=== PATIENT | male | born 1975 | race American Indian/Alaskan Native ===

== ENCOUNTER 2019-12-08 09:50 | Emergency (ER) | payer SELFPAY ==
[2019-12-08 10:00] VITALS: BP 121/68
--- NOTE | 2019-12-08 10:46 | XRay Report ---
RIGHT INDEX FINGER 3 VIEWS INDICATION / CLINICAL INFORMATION: Right index finger injury with pain and swelling. COMPARISON: None available. FINDINGS: BONES and JOINT(S): No acute fracture or subluxation. No significant arthritis. SOFT TISSUES: Mild generalized edema is seen along the index finger without other significant abnorma lities. ADDITIONAL FINDINGS: None. IMPRESSION: Mild right index finger edema. Signer Name: Torsten Cadet MD Signed: 12/08/2019 10:42 AM Workstation Name: [id number]
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
== END 2019-12-08 11:53 | disposition home or self-care (01) ==
LOC: ED 09:50
DX: S63.630A Sprain of interphalangeal joint of right index finger, initial encounter (principal); F17.200 Nicotine dependence, unspecified, uncomplicated; Z88.0 Allergy status to penicillin; X58.XXXA Exposure to other specified factors, initial encounter; Y93.89 Activity, other specified; Y92.89 Other specified places as the place of occurrence of the external cause; Y99.8 Other external cause status
CPT/HCPCS: 99283

== ENCOUNTER 2019-12-16 10:34 | Emergency (ER) | payer SELFPAY ==
[2019-12-16 10:56] VITALS: BP 142/87
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
--- NOTE | 2019-12-16 12:38 | XRay Report ---
RIGHT FINGER, 3 VIEWS INDICATION / CLINICAL INFORMATION: right index finger swelling/pain after object fell. COMPARISON: None available. FINDINGS: 3 views of the right index finger do not reveal any significant osseous abnormality. No fracture or m alalignment. There is some mild soft tissue swelling proximally. IMPRESSION: Mild soft tissue swelling but no visible fracture or dislocation. Signer Name: Lynne Deal MD Signed: 12/16/2019 12:34 PM Workstation Name: [id number]
== END 2019-12-16 12:58 | disposition home or self-care (01) ==
LOC: ED 10:34
DX: S60.021A Contusion of right index finger without damage to nail, initial encounter (principal); F17.200 Nicotine dependence, unspecified, uncomplicated; Z79.899 Other long term (current) drug therapy; X50.9XXA Other and unspecified overexertion or strenuous movements or postures, initial encounter; Y93.89 Activity, other specified; Y92.89 Other specified places as the place of occurrence of the external cause; Y99.8 Other external cause status
CPT/HCPCS: 99283